=== PATIENT | male | born 1950 | race Caucasian/White ===

== ENCOUNTER 2019-03-16 08:08 | Day surgery (SDC) | payer MEDICARE ==
[~2019-03-16] VITALS: Ht 180.3 cm; Wt 117.1 kg
[2019-03-16] VITALS (15 sets, daily range): BP systolic 118–130; BP diastolic 67–94
[~2019-03-16 08:08] MED LIST: GLYB2.5T4 PO; HYDR25TA4 PO; LEVO100T78 PO
[2019-03-16] MEDS ORDERED: normal saline 1000ml 1,000 ML IV PRN (08:55)
[2019-03-16] MEDS ORDERED: LEVO175T7 PO (09:11)
[2019-03-16] MEDS ORDERED: FURO-150 PO (09:11)
[2019-03-16] MEDS ORDERED: POTA-82 PO (09:11)
[2019-03-16] MEDS ORDERED: METF-436 PO (09:11)
[2019-03-16] MEDS: albumin 25% 100mL bottle x 1 IV PRN ×2 (10:57→11:46)
== END 2019-03-16 13:00 | disposition home or self-care (01) ==
LOC: SSTAY O 08:08
PROVIDERS: ATTEND Radiology Diagnostic Radiology
DX: R18.8 Other ascites (principal); E11.9 Type 2 diabetes mellitus without complications; Z88.8 Allergy status to other drugs, medicaments and biological substances; Z88.5 Allergy status to narcotic agent; Z98.890 Other specified postprocedural states; Z79.899 Other long term (current) drug therapy; Z79.84 Long term (current) use of oral hypoglycemic drugs
CPT/HCPCS: 49083; C1729; J7030; P9047

== ENCOUNTER 2019-05-31 07:27 | Day surgery (SDC) | payer MEDICARE ==
[~2019-05-31] VITALS: Ht 180.3 cm; Wt 119.2 kg
[2019-05-31] VITALS (7 sets, daily range): BP systolic 100–111; BP diastolic 49–72
[~2019-05-31 07:27] MED LIST changes: +FURO-150 PO; -GLYB2.5T4 PO; -HYDR25TA4 PO; -LEVO100T78 PO; +LEVO175T7 PO; +METF-436 PO; +POTA-82 PO
[2019-05-31] MEDS ORDERED: albumin 25% 100mL bottle x 1 IV PRN (07:50)
[2019-05-31] MEDS ORDERED: normal saline 1000ml 1,000 ML IV PRN (07:50)
[2019-05-31] MEDS ORDERED: testosterone TOP (08:04)
[2019-05-31] MEDS ORDERED: LORA-512 PO (08:04)
[2019-05-31] MEDS ORDERED: LEVO175T37 PEG (08:04)
[2019-05-31] MEDS ORDERED: METF500T PO (08:04)
[2019-05-31] MEDS ORDERED: FURO40TA4 PO (08:04)
--- NOTE | 2019-05-31 11:08 | NUR ---
Student documentation: I have reviewed and agree with all interventions, assessments performed and documented by Alexandria RYAN student.
== END 2019-05-31 10:10 | disposition home or self-care (01) ==
LOC: SSTAY O 07:27
PROVIDERS: ATTEND Radiology Vascular & Interventional Radiology
DX: R18.8 Other ascites (principal); E11.9 Type 2 diabetes mellitus without complications; Z98.890 Other specified postprocedural states; Z87.891 Personal history of nicotine dependence; Z72.89 Other problems related to lifestyle; Z88.5 Allergy status to narcotic agent; Z79.899 Other long term (current) drug therapy; Z79.84 Long term (current) use of oral hypoglycemic drugs
CPT/HCPCS: 49083; C1729; J7030; P9047

== ENCOUNTER 2021-03-18 09:20 | Day surgery (SDC) | payer MEDICARE, OTHER ==
[~2021-03-18] VITALS: Ht 182.9 cm; Wt 100.2 kg
[2021-03-18 08:40] VITALS: BP 136/72
[~2021-03-18 09:20] MED LIST changes: -FURO-150 PO; +FURO40TA4 PO; +LEVO175T37 PEG; -LEVO175T7 PO; +LORA-512 PO; -METF-436 PO; +METF500T PO; +testosterone TOP
[2021-03-18 09:40] VITALS: BP 136/72
[2021-03-18] MEDS ORDERED: albumin 25% 100mL bottle x 1 IV PRN (09:50)
[2021-03-18] MEDS ORDERED: SPIR100T5 PO (10:10)
[2021-03-18] MEDS ORDERED: PROP10TA10 PO (10:10)
--- NOTE | 2021-03-18 10:15 | NUR ---
[place] only, no fluid, proc. cancelled.
== END 2021-03-18 10:20 | disposition home or self-care (01) ==
LOC: SSTAY O 09:20
PROVIDERS: ATTEND Radiology Vascular & Interventional Radiology
DX: K70.31 Alcoholic cirrhosis of liver with ascites (principal); Z53.8 Procedure and treatment not carried out for other reasons; Z98.890 Other specified postprocedural states; Z87.891 Personal history of nicotine dependence; Z72.89 Other problems related to lifestyle; Z88.5 Allergy status to narcotic agent; Z88.8 Allergy status to other drugs, medicaments and biological substances; Z79.899 Other long term (current) drug therapy
CPT/HCPCS: 76705